=== PATIENT | female | born 1995 | race Caucasian/White ===

== ENCOUNTER 2018-04-07 10:07 | Emergency (ER) | payer OTHER ==
[~2018-04-07] VITALS: Ht 160 cm; Wt 49.9 kg
--- NOTE | 2018-04-07 10:16 | NUR ---
Dr Givens at the bedside for MSE.
[2018-04-07] MEDS ORDERED: BIRTH CONTROL (10:17)
[2018-04-07] MEDS ORDERED: CITA10TA17 PO (10:17)
[2018-04-07] MEDS ORDERED: KETOROLAC TROMETHAMINE 30 MG INJ ONE (10:25)
[2018-04-07] MEDS ORDERED: KETOROLAC TROMETHAMINE 30 MG INJ IM ONE (10:30)
[2018-04-07 10:36] VITALS: BP 103/76
--- NOTE | 2018-04-07 10:42 | NUR ---
Patient discharged to home in stable conditon. Written and verbal after care instructions given. Patient verbalizes understanding of instructions. Pt walked out of ER w/ steady gait, accompained by family.
== END 2018-04-07 10:42 | disposition home or self-care (01) ==
LOC: ER 10:07
DX: S80.211A Abrasion, right knee, initial encounter (principal); S39.92XA Unspecified injury of lower back, initial encounter; Z79.899 Other long term (current) drug therapy; V49.9XXA Car occupant (driver) (passenger) injured in unspecified traffic accident, initial encounter; Y93.89 Activity, other specified; Y92.89 Other specified places as the place of occurrence of the external cause; Y99.8 Other external cause status
CPT/HCPCS: 96372; 99283; J1885; A4663